=== PATIENT | male | born 1950 | race Caucasian/White ===

== ENCOUNTER → 2021-03-04 | Outpatient (CLI) | payer MEDICARE, OTHER ==
[~2021-03-04] MED LIST: ALBU2.5V8 INH; ALLO100T PO; ATOR20TA58 PO; CELE200C PO; COLC0.6T34 PO; CYCL10TA2 PO; GABA600T7 PO; OLME20TA17 PO; OLOP2.5D12 OP; VALS80TA3 PO
== END ==
LOC: LAB 09:07
PROVIDERS: ATTEND Internal Medicine Gastroenterology
DX: Z01.812 Encounter for preprocedural laboratory examination (principal); Z12.11 Encounter for screening for malignant neoplasm of colon; Z20.822 Contact with and (suspected) exposure to COVID-19
CPT/HCPCS: U0003

== ENCOUNTER → 2021-03-05 | Day surgery (SDC) | payer MEDICARE, OTHER ==
[~2021-03-05] MED LIST changes: +LIDOCAINE 2% PF 5 ML VIAL. ONE; +PROPOFOL 10 MG/ML (20ML) VIAL. IV ONE
[2021-03-05] MEDS: IV RINGERS,LACTATED 1000ML 1,000 ML IV SCH (08:29)
[2021-03-05 09:32] VITALS: BP 128/89
--- NOTE | 2021-03-05 10:04 | CONS ---
DATE OF CONSULTATION: 03/05/2021 GASTROINTESTINAL CONSULTATION REFERRING PHYSICIAN: Vadim Izquierdo MD. REASON FOR CONSULTATION: History of colon polyps and a family history of colon cancer. HISTORY OF PRESENT ILLNESS: This is a 70-year-old male with past medical history significant for hypertension, gouty arthritis, hyperlipidemia and asthma, seen for interval colon exam. The patient's last exam was approximately 3 years ago, which did reveal polyps. Bowel habits have been regular without diarrhea or constipation. There has been no melena and/or hematochezia. FAMILY HISTORY: Positive for colon cancer with his father. He is otherwise without additional complaints. PAST MEDICAL HISTORY: History of colonic polyps, hypertension, hyperlipidemia, arthritis, and asthma. PREVIOUS SURGICAL HISTORY: Joint replacement, tonsillectomy, vasectomy and eye surgery. ALLERGIES: None. MEDICATIONS: Include albuterol, allopurinol, atorvastatin, Celebrex, colchicine, gabapentin, Pataday eyedrops and Diovan. SOCIAL HISTORY: He is a social drinker, nonsmoker. FAMILY HISTORY: Significant for colon cancer with his father and breast cancer with his daughter. REVIEW OF SYSTEMS: HEENT: There is no decrease in hearing or visual acuity issues. CARDIAC: There is history of hypertension. PULMONARY: History of asthma. RENAL: No dysuria, frequency, or hematuria. NEUROLOGIC: No stroke, migraine, or neuropathy. PSYCHIATRIC: No mood swings, depression, insomnia. ENDOCRINE: History of hyperlipidemia. MUSCULOSKELETAL: History of osteoarthrosis. GASTROINTESTINAL: See history of present illness. HEMATOLOGIC: No bleeding, bruising, coagulopathy. PHYSICAL EXAMINATION: GENERAL: Reveals a well-nourished, well-developed male. VITAL SIGNS: Temperature is 97.8, pulse 77, respirations 20. HEENT: Exam reveals normocephalic, atraumatic head. Pupils and extraocular muscles are not tested. Sclerae anicteric. NECK: Supple. LUNGS: Clear. CARDIOVASCULAR: Reveals an S1, S2 without S3, S4 or appreciable murmur. ABDOMEN: With a soft abdomen, normal bowel sounds, without appreciable hepatosplenomegaly. EXTREMITIES: Reveals no cyanosis, clubbing or edema. IMPRESSION: Colorectal screening with history of colonic polyps and family history of colon cancer is warranted at this time. Risks and benefits of procedure including risk of hemorrhage and perforation were discussed. The patient is willing to proceed. I would like to thank Dr. Izquierdo for allowing us to consult and participate in the patient's care. FLORES ALSTON MD DR: KAYA/jayden JOB#: [id number] / [id number] VADIM Melo MD
== END | disposition home or self-care (01) ==
LOC: ENDOS 07:57
PROVIDERS: ATTEND Internal Medicine Gastroenterology
DX: Z12.11 Encounter for screening for malignant neoplasm of colon (principal); K64.0 First degree hemorrhoids; I10 Essential (primary) hypertension; M19.90 Unspecified osteoarthritis, unspecified site; E78.00 Pure hypercholesterolemia, unspecified; J44.9 Chronic obstructive pulmonary disease, unspecified; K21.9 Gastro-esophageal reflux disease without esophagitis; Z86.010 Personal history of colon polyps; Z80.0 Family history of malignant neoplasm of digestive organs; Z87.891 Personal history of nicotine dependence; Z79.899 Other long term (current) drug therapy; Z98.890 Other specified postprocedural states; Z72.89 Other problems related to lifestyle
CPT/HCPCS: G0105; J2704; 45378